=== PATIENT | female | born 1960 | race African-American/Black ===

== ENCOUNTER 2019-11-18 17:51 | Inpatient (IN) | payer MEDICAID ==
[~2019-11-18] VITALS: Ht 160 cm; Wt 117.9 kg
[2019-11-18] MEDS ORDERED: ONDANSETRON HCL 4MG/2ML INJ IV STA (23:34)
[2019-11-18] MEDS ORDERED: SODIUM CHLORIDE 0.9% 1,000 ML IV ONE (23:34)
[2019-11-18] MEDS ORDERED: MORPHINE SULFATE 4 MG/ML CPJ (NOT FOR IM USE) IV STA (23:34)
[2019-11-18] MEDS ORDERED: MAGNESIUM/ALUMINUM HYDROXIDE/SIMETHICONE 30ML UDC PO ONE (23:45)
[2019-11-18] MEDS ORDERED: FAMOTIDINE 20MG/2ML VIAL IV ONE (23:45)
[2019-11-19 00:10] LABS: EOSINOPHILS % 0.4 % (0.0-5.0); HEMATOCRIT. 39.2 % (36.0-48.0); HEMOGLOBIN. 12.6 g/dL (12.0-16.0); MEAN CORPUSCULAR HEMOGLOBIN 27.3 pg (28.0-32.0); MEAN CORPUSCULAR VOLUME 84.8 fL (81.0-99.0); MEAN PLATELET VOLUME 9.5 fl (7.4-10.4); NEUTROPHILS % 67.6 % (40.0-76.0); PLATELET 198 x1000/uL (130-400); RED BLOOD CELL COUNT 4.62 mill/uL (4.2-5.4); RED CELL DISTRIBUTION WIDTH 14.9 % (11.6-14.6)
[2019-11-19 00:14] LABS: CHLORIDE 107 mEq/L (98-107)
[2019-11-19 00:22] LABS: ETHANOL BLOOD < 10 mg/dL
[2019-11-19] MEDS ORDERED: SILVER SULFADIAZINE 1% CREAM 25GM TOP ONE (01:00)
[2019-11-19 01:48] LABS: *AMPHETAMINES SCREEN URINE NEGATIVE (NEGATIVE); *BARBITURATES SCREEN URINE NEGATIVE (NEGATIVE); *BENZODIAZEPINES SCREEN URINE NEGATIVE (NEGATIVE); *COCAINE SCREEN URINE NEGATIVE (NEGATIVE); METHADONE URINE SCREEN NEGATIVE (NEGATIVE); OPIATES URINE SCREEN NEGATIVE (NEGATIVE)
[2019-11-19 01:50] LABS: CANNABINOID URINE SCREEN PRESUMTIVE POSITIVE (NEGATIVE); PHENCYCLIDINE URINE SCREEN NEGATIVE (NEGATIVE)
[2019-11-19 08:00] VITALS: BP 152/84
[2019-11-19 09:26] VITALS: BP 155/95
[2019-11-19] MEDS ORDERED: LORAZEPAM 2MG/ML CPJ IV PRN (11:00)
[2019-11-19] MEDS ORDERED: ONDANSETRON HCL 4MG/2ML INJ IV PRN (11:00)
[2019-11-19] MEDS ORDERED: ACETAMINOPHEN 325MG TABLET PO PRN (11:00)
[2019-11-19] MEDS ORDERED: IPRATROPIUM/ALBUTEROL 0.5-3(2.5)MG/3ML NEB HHN PRN (11:00)
[2019-11-19] MEDS: SODIUM CHLORIDE 0.9% 1,000 ML IV SCH ×2 (11:00→21:01)
[2019-11-19] MEDS ORDERED: CLONIDINE 0.1MG TABLET PO PRN (11:00)
[2019-11-19] MEDS: MORPHINE SULFATE 2 MG/ML CPJ (NOT FOR IM USE) IV PRN ×3 (11:07→23:01)
[2019-11-19 12:00] VITALS: BP 125/59
[2019-11-19] MEDS ORDERED: POTASSIUM CHLORIDE INJ 40 MEQ in DEXT 5% WATER 500 ML IV SCH (13:00)
[2019-11-19 16:00] VITALS: BP 141/87
[2019-11-19 20:00] VITALS: BP 163/79
[2019-11-19] MEDS: SILVER SULFADIAZINE 1% CREAM 25GM TOP SCH (21:03)
[2019-11-20] VITALS: BP 140/67
[2019-11-20 04:00] VITALS: BP 150/70
[2019-11-20] MEDS: SODIUM CHLORIDE 0.9% 1,000 ML IV SCH (06:28)
[2019-11-20 08:00] VITALS: BP 136/75
[2019-11-20] MEDS: SILVER SULFADIAZINE 1% CREAM 25GM TOP SCH ×2 (09:08→21:53)
[2019-11-20 11:04] LABS: EOSINOPHILS % 2.6 % (0.0-5.0); HEMOGLOBIN. 12.3 g/dL (12.0-16.0); LYMPHOCYTES % 34.3 % (20.0-50.0); MEAN CORPUSCULAR HEMOGLOBIN 27.1 pg (28.0-32.0); MEAN CORPUSCULAR VOLUME 85.9 fL (81.0-99.0); MEAN PLATELET VOLUME 9.1 fl (7.4-10.4); MONOCYTES % 8.6 % (2.0-8.0); NEUTROPHILS % 53.5 % (40.0-76.0); PLATELET 183 x1000/uL (130-400); RED BLOOD CELL COUNT 4.54 mill/uL (4.2-5.4); RED CELL DISTRIBUTION WIDTH 14.8 % (11.6-14.6)
[2019-11-20 11:17] LABS: CHLORIDE 108 mEq/L (98-107)
[2019-11-20 11:26] LABS: HDL CHOLESTEROL 41 mg/dL (40-59)
[2019-11-20 11:36] LABS: LDL CHOLESTEROL 71 mg/dL (5-100); PHOSPHORUS 3.3 mg/dL (2.5-4.9)
[2019-11-20 12:00] VITALS: BP 153/88
[2019-11-20] MEDS ORDERED: POTASSIUM CHLORIDE 20MEQ TABLET SR PO NR (12:30)
[2019-11-20] MEDS: AMLODIPINE 5MG TABLET PO SCH (12:51)
[2019-11-20 16:00] VITALS: BP 138/68
[2019-11-20] MEDS: MORPHINE SULFATE 2 MG/ML CPJ (NOT FOR IM USE) IV PRN ×2 (16:57→21:53)
[2019-11-20 20:00] VITALS: BP 154/76
[2019-11-21] VITALS: BP 157/71
[2019-11-21] MEDS: SODIUM CHLORIDE 0.9% 1,000 ML IV SCH ×3 (03:32→17:31)
[2019-11-21 04:00] VITALS: BP 165/62
[2019-11-21 07:15] LABS: CHLORIDE 110 mEq/L (98-107)
[2019-11-21 07:34] LABS: BASOPHILS % 1.2 % (0.0-2.0); EOSINOPHILS % 2.3 % (0.0-5.0); HEMATOCRIT. 37.8 % (36.0-48.0); HEMOGLOBIN. 12.1 g/dL (12.0-16.0); LYMPHOCYTES % 36.4 % (20.0-50.0); MEAN CORPUSCULAR HEMOGLOBIN 27.2 pg (28.0-32.0); MEAN CORPUSCULAR VOLUME 85.3 fL (81.0-99.0); MEAN PLATELET VOLUME 9.1 fl (7.4-10.4); MONOCYTES % 9.3 % (2.0-8.0); NEUTROPHILS % 50.8 % (40.0-76.0); PLATELET 205 x1000/uL (130-400); RED BLOOD CELL COUNT 4.43 mill/uL (4.2-5.4)
[2019-11-21 08:00] VITALS: BP 135/65
[2019-11-21] MEDS: MORPHINE SULFATE 2 MG/ML CPJ (NOT FOR IM USE) IV PRN (11:26)
[2019-11-21] MEDS: AMLODIPINE 5MG TABLET PO SCH (11:34)
[2019-11-21] MEDS: SILVER SULFADIAZINE 1% CREAM 25GM TOP SCH ×2 (11:35→22:28)
[2019-11-21 12:00] VITALS: BP 150/88
[2019-11-21 16:00] VITALS: BP 124/88
[2019-11-21 20:00] VITALS: BP 154/81
[2019-11-22] VITALS: BP 150/82
[2019-11-22 04:00] VITALS: BP 152/80
[2019-11-22] MEDS: SODIUM CHLORIDE 0.9% 1,000 ML IV SCH ×2 (06:34→22:43)
[2019-11-22 07:53] LABS: BASOPHILS % 0.7 % (0.0-2.0); EOSINOPHILS % 1.8 % (0.0-5.0); HEMATOCRIT. 35.1 % (36.0-48.0); HEMOGLOBIN. 11.4 g/dL (12.0-16.0); LYMPHOCYTES % 34.2 % (20.0-50.0); MEAN CORPUSCULAR HEMOGLOBIN 27.5 pg (28.0-32.0); MEAN CORPUSCULAR VOLUME 84.2 fL (81.0-99.0); MEAN PLATELET VOLUME 9.4 fl (7.4-10.4); MONOCYTES % 10.1 % (2.0-8.0); NEUTROPHILS % 53.2 % (40.0-76.0); PLATELET 204 x1000/uL (130-400); RED BLOOD CELL COUNT 4.17 mill/uL (4.2-5.4); RED CELL DISTRIBUTION WIDTH 14.5 % (11.6-14.6)
[2019-11-22 07:56] LABS: CHLORIDE 108 mEq/L (98-107)
[2019-11-22 08:00] VITALS: BP 129/75
[2019-11-22] MEDS: AMLODIPINE 5MG TABLET PO SCH (10:02)
[2019-11-22] MEDS: SILVER SULFADIAZINE 1% CREAM 25GM TOP SCH ×2 (10:04→20:30)
[2019-11-22] MEDS: MORPHINE SULFATE 2 MG/ML CPJ (NOT FOR IM USE) IV PRN ×3 (10:48→22:51)
[2019-11-22] MEDS ORDERED: POTASSIUM CHLORIDE 20MEQ TABLET SR PO NR (11:30)
[2019-11-22 12:00] VITALS: BP 154/91
[2019-11-22 16:00] VITALS: BP 154/88
[2019-11-22] MEDS: DOCUSATE SODIUM 100MG CAPSULE PO SCH (18:10)
[2019-11-22 20:00] VITALS: BP 150/87
[2019-11-23] VITALS: BP 140/78
[2019-11-23 04:00] VITALS: BP 151/91
[2019-11-23 06:48] LABS: HEMATOCRIT. 37.5 % (36.0-48.0); HEMOGLOBIN. 12.1 g/dL (12.0-16.0); LYMPHOCYTES % 37.6 % (20.0-50.0); MEAN CORPUSCULAR HEMOGLOBIN 27.5 pg (28.0-32.0); MEAN CORPUSCULAR VOLUME 85.1 fL (81.0-99.0); MEAN PLATELET VOLUME 8.9 fl (7.4-10.4); NEUTROPHILS % 51.4 % (40.0-76.0); PLATELET 209 x1000/uL (130-400); RED BLOOD CELL COUNT 4.41 mill/uL (4.2-5.4); RED CELL DISTRIBUTION WIDTH 14.7 % (11.6-14.6)
[2019-11-23 07:01] LABS: CHLORIDE 108 mEq/L (98-107)
[2019-11-23] MEDS: SILVER SULFADIAZINE 1% CREAM 25GM TOP SCH (09:00)
[2019-11-23] MEDS: AMLODIPINE 5MG TABLET PO SCH (10:08)
[2019-11-23] MEDS: DOCUSATE SODIUM 100MG CAPSULE PO SCH (10:08)
[2019-11-23] MEDS ORDERED: BISA-81 MT (12:26)
[2019-11-23] MEDS ORDERED: DOCU-138 MT (12:26)
[2019-11-23 12:43] VITALS: BP 149/83
== END 2019-11-23 15:11 | disposition home or self-care (01) | DRG 247 ==
LOC: ER 17:51 → 6EST 11-19 01:42 → EDBEDREQ 11-19 01:45 → EDBEDREQTM 11-19 01:45 → ENRESERV 11-19 07:38
PROVIDERS: ADMIT Internal Medicine; ATTEND Internal Medicine
DX: K56.609 Unspecified intestinal obstruction, unspecified as to partial versus complete obstruction (principal); E11.65 Type 2 diabetes mellitus with hyperglycemia; E87.6 Hypokalemia; F12.90 Cannabis use, unspecified, uncomplicated; I10 Essential (primary) hypertension; J45.909 Unspecified asthma, uncomplicated; K56.7 Ileus, unspecified; Z90.49 Acquired absence of other specified parts of digestive tract; Z98.891 History of uterine scar from previous surgery
CPT/HCPCS: 36415; 71045; 74018; 74176; 80048; 80053; 80061; 80305; 80320; 82962; 83036; 83735; 83880; 84100; 84484; 85025; 93005; 96374; 96375; 99285; C1893; J2270; J2405; J3480; J3490; J7030; J7060; G0480